=== PATIENT | female | born 1990 | race Caucasian/White ===

== ENCOUNTER 2023-09-23 06:43 | Emergency (ER) | payer BC, SELFPAY ==
[2023-09-23 06:50] VITALS: BP 140/83; PULSE 81; RESP 18; TEMP 36.8; O2SAT 99; BMI 32.9
--- NOTE | 2023-09-23 07:00 | ED.ABDPAIN ---
HPI - Abdominal Pain General Time Seen by Provider: 07:00 Date Seen: 09/23/23 Chief Complaint: Abdominal Pain Stated Complaint: Abdominal pain Time Seen by Provider: 09/23/23 06:46 Source: patient, RN notes reviewed and old records reviewed Mode of arrival: ambulatory Limitations: no limitations History of Present Illness HPI narrative: 33-year-old female who comes in today with right upper quadrant pain and nausea. She had this 3 days ago and was quite severe, felt a little better over 2 days with a bland diet then went to more of a regular diet yesterday and woke up with pain today. Pain is worse with breathing worse with movement. Nausea without vomiting. Has some looser stools but to take MiraLax. No fevers or chills. Related Data Home Medications Medication Instructions Recorded Confirmed No Known Home Medications 09/23/23 09/23/23 Allergies Allergy/AdvReac Type Severity Reaction Status Date / Time No Known Drug Allergies Allergy Verified 09/23/23 06:53 PFSH PFSH Social History Smoking Status: Never smoker Do you use any of these nicotine containing products: None Second hand tobacco smoke exposure: No How often do you have a drink containing alcohol: 2-4 times a month How many standard drinks containing alcohol do you have on a typical day: 1 or 2 How often do you have six or more drinks on one occasion: Less than monthly AUDIT-C Alcohol total score: 3 Non-prescribed substance use: denies use service: Yes Exam Narrative: Exam Narrative: General: Well-developed and well-nourished, no acute distress Head: Atraumatic and normocephalic Eyes: Pupils are equal reactive, extraocular motions intact, conjunctiva clear ENT: External nose and ears are normal, posterior pharynx without erythema or exudate Neck: No midline cervical tenderness, full spontaneous range of motion the neck, trachea midline, no adenopathy Heart: Regular rate and rhythm no murmurs or thrills Lungs: Clear to auscultation bilaterally without wheezes or crackles Abdomen: Soft, right upper quadrant tenderness,, nondistended with active bowel sounds Musculoskeletal: No tenderness, deformity, or edema Neurologic: Awake, alert, and oriented x3, no gross focal neurologic deficits, cranial nerves intact as tested Psych: Mood and affect are appropriate Skin: No rashes Const: Vital Signs, click to edit/add: Vital Signs - 24 hr 09/23/23 06:50 09/23/23 07:32 Temperature 98.2 F Pulse Rate [Pulse Oximeter] 81 66 Respiratory Rate 18 18 Blood Pressure [Ri ght Upper Arm] 140/83 H 105/69 Pulse Oximetry 99 100 Oxygen Delivery Me thod Room Air Room Air Course Course ED Course: Patient seen examined, prior records reviewed. Patient presents with right upper quadrant pain, nausea, and some looser stools. No lower abdominal tenderness to suggest ovarian cyst, torsion, acute appendicitis, or diverticulitis. She does have mild epigastric and moderate right upper quadrant tenderness, suspect biliary colic or acute cholecystitis. Labs are ordered. Patient declines pain medications. Ultrasound ordered as well. Reevaluation(s) Time of Reevaluation #1: 07:52 Reevaluation #1: Labs ordered and independently interpreted by me with reassuring CBC, normal BMP, normal hepatic panel, normal lipase, UA in pending. Time of Reevaluation #2: 08:30 Reevaluation #2: Right upper quadrant ultrasound is negative. Patient rechecked and is currently pain-free. Discussed the findings, this could still represent biliary colic or a calculous cholecystitis although that would be unusual in a healthy young person. Consider HIDA scan if further concern. Discussed bland diet and follow up with General surgery for further evaluation and treatment. Vital Signs Vital signs: Initial Vital Signs Temperature 98.2 F 09/23/23 06:50 Temperature Source Temporal Artery Scan 09/23/23 06:50 Pulse Rate 81 09/23/23 06:50 Respiratory Rate 18 09/23/23 06:50 Blood Pressure 140/83 H 09/23/23 06:50 Blood Pressure Mean 102 09/23/23 06:50 Blood Pressure Position Sitting 09/23/23 06:50 Pulse Oximetry 99 09/23/23 06:50 Oxygen Delivery Method Room Air 09/23/23 06:50 Vital Signs Temperature 98.2 F 09/23/23 06:50 Pulse Rate 81 09/23/23 06:50 Respiratory Rate 18 09/23/23 06:50 Blood Pressure 140/83 H 09/23/23 06:50 Pulse Oximetry 99 09/23/23 06:50 Oxygen Delivery Method Room Air 09/23/23 06:50 Temperature 98.2 F 09/23/23 06:50 Pulse Rate 66 09/23/23 07:32 Respiratory Rate 18 09/23/23 07:32 Blood Pressure 105/69 09/23/23 07:32 Pulse Oximetry 100 09/23/23 07:32 Oxygen Delivery Method Room Air 09/23/23 07:32 MDM - Abdominal Pain Lab Data Labs: Lab Results 09/23/23 09/23/23 Range/Units 07:16 Unknown WBC 5.39 (4.50-11.00) K/uL RBC 4.43 (4.00-5.20) m/uL Hgb 13.1 (12.0-16.0) gm/dL Hct 39.5 (33.0-51.0) % MCV 89 (80-100) fL MCH 30 (26-34) pg MCHC 33 (32-36) gm/dL RDW Coeff of Cookie 11.7 (11.5-15.5) % Plt Count 331 (140-440) K/uL Neut % (Auto) 46.9 (42.0-72.0) % Lymph % (Auto) 45.8 H (20-44) % Carter % (Auto) 5.6 (0.0-11.0) % Eos % (Auto) 1.1 (0.0-7.0) % Baso % (Auto) 0.4 (0.0-3.0) % Neut # (Auto) 2.53 (1.7-7.0) K/uL Lymph # (Auto) 2.50 (0.90-2.90) K/uL Carter # (Auto) 0.30 (0.00-0.90) K/UL Eos # (Auto) 0.06 (0.00-0.50) K/uL Baso # (Auto) 0.02 (0.00-0.30) K/uL Abs Immat Gran (auto) 0.01 (0.00-0.30) K/uL Imm/Tot Granulo (auto) 0.2 % Sodium 141 (135-149) mmol/L Potassium 4.0 (3.6-5.1) mmol/L Chloride 106 (96-114) mmol/L Carbon Dioxide 25 (20-32) mmol/L Anion Gap 10 (7-15) mEq/L BUN 16 (5-24) mg/dL Creatinine 0.7 (0.5-1.5) mg/dL Estimated Creat Clear 92.10 Estimated GFR 119 ml/min Glucose 99 (60-115) mg/dL Calcium 8.9 (8.4-10.6) mg/dL Total Bilirubin 0.5 (0.1-1.5) mg/dL Direct Bilirubin 0.0 (0.0-0.5) mg/dL AST 20 (12-35) U/L ALT 18 (4-35) U/L Alkaline Phosphatase 49 (40-150) U/L Total Protein 7.5 (6.0-8.3) g/dL Albumin 4.5 (3.3-5.0) g/dL Lipase 100 (23-300) U/L Urine Color Yellow (Yellow) Urine Appearance Clear (Clear) Urine pH 6.0 (5.0-8.5) Ur Specific [place] >= 1.030 (1.000-1.030) Urine Protein Negative (Negative) Urine Glucose (UA) Negative (Negative) Urine Ketones Negative (Negative) Urine Blood Negative (Negative) Urine Nitrite Negative (Negative) Urine Bilirubin Negative (Negative) Urine Urobilinogen 0.2 (0.2-1.0) Ur Leukocyte Esterase Negative (Negative) Urine RBC 0-2 (0-2) Urine WBC 0-2 (0-5) Ur Squamous Epith Cells Few (None-Few) Urine Bacteria None (None) Urine Mucus Few A (None) Discharge Plan Discharge Clinical Impression: Abdominal pain, RUQ Patient Disposition: Home, Self-Care Condition: Stable Instructions: Biliary Colic (ED), Abdominal Pain (ED) Additional Instructions: Tylenol and ibuprofen as needed for pain Follow-up with general surgery, call [phone] for an appointment Activity Level: Activity as Tolerated Discharge Diet: Low Fat/Low Cholesterol Prescriptions: No Action No Known Home Medications Follow Up/Referrals: Provider,Not a Local [Primary Care Provider] - Stand Alone Forms: [place] Info Instructions
--- NOTE | 2023-09-23 07:02 | CRLHL7_ITS ---
For Patients: As a result of the Century Cures Act, medical imaging exams and procedure reports are released immediately into your electronic medical record. You may view this report before your referring provider. If you have questions, please contact your health care provider. INDICATION: Right upper quadrant pain. TECHNIQUE: Ultrasound abdomen limited. Sonographic images of the right upper quadrant were obtained using brenner-scale and color Doppler images. COMPARISON: None. FINDINGS: Liver: Normal in size and echotexture. No suspicious masses. No intrahepatic biliary dilatation. Gallbladder: No stones or sludge. Normal wall thickness. No pericholecystic fluid. Common bile duct: 3 mm. Pancreas: Unremarkable where visualized. Right kidney: Normal in size. Normal echotexture and cortex. No suspicious masses, stones, or hydronephrosis. Vasculature: Proximal abdominal aorta and IVC are unremarkable. IMPRESSION: No sonographic findings to explain the clinical history. Dictated by Tay Davis MD @ 09/23/2023 8:23:14 AM (Electronically Signed)
[2023-09-23 07:28] LABS: Basophils Absolute Auto 0.02 K/uL (0.00-0.30); Basophils Percent Auto 0.4 % (0.0-3.0); Eosinophils Absolute Auto 0.06 K/uL (0.00-0.50); Eosinophils Percent Auto 1.1 % (0.0-7.0); Hematocrit 39.5 % (33.0-51.0); Hemoglobin* 13.1 gm/dL (12.0-16.0); Immature Granulocytes Abs Auto 0.01 K/uL (0.00-0.30); Immature Granulocytes Pct Auto 0.2 %; Lymphocytes Percent Auto 45.8 % (20-44); Mean Corpuscular HGB Conc 33 gm/dL (32-36); Mean Corpuscular Hemoglobin 30 pg (26-34); Mean Corpuscular Volume 89 fL (80-100); Monocytes Percent Auto 5.6 % (0.0-11.0); Neutrophils Absolute Auto 2.53 K/uL (1.7-7.0); Neutrophils Percent Auto 46.9 % (42.0-72.0); Platelet Count* 331 K/uL (140-440); RDW Coefficient of Variation % 11.7 % (11.5-15.5); Red Blood Count 4.43 m/uL (4.00-5.20); White Blood Count* 5.39 K/uL (4.50-11.00)
[2023-09-23 07:31] LABS: Slide Review Reflex No
[2023-09-23 07:32] VITALS: BP 105/69; PULSE 66; RESP 18; O2SAT 100
[2023-09-23 07:45] LABS: Albumin* 4.5 g/dL (3.3-5.0); Chloride* 106 mmol/L (96-114); Sodium* 141 mmol/L (135-149)
[2023-09-23 07:45] LABS: Appearance Urine Clear (Clear); Bilirubin Urine Negative (Negative); Blood Urine Negative (Negative); Color Urine Yellow (Yellow); Glucose Urine Negative (Negative); Ketones Urine Negative (Negative); Leukocyte Esterase Urine Negative (Negative); Nitrite Urine Negative (Negative); Protein Urine Negative (Negative); Specific Gravity Urine >= 1.030 (1.000-1.030); Urobilinogen Urine 0.2 (0.2-1.0)
[2023-09-23 07:47] LABS: Creatinine* 0.7 mg/dL (0.5-1.5)
[2023-09-23 07:48] LABS: Alkaline Phosphatase* 49 U/L (40-150); Anion Gap 10 mEq/L (7-15); Aspartate Amino Transferase* 20 U/L (12-35); Bilirubin Total* 0.5 mg/dL (0.1-1.5); Blood Urea Nitrogen* 16 mg/dL (5-24); Carbon Dioxide* 25 mmol/L (20-32); Estimated Glomerular Filt Rate 119 ml/min; Glucose* 99 mg/dL (60-115); Lipase* 100 U/L (23-300); Total Protein* 7.5 g/dL (6.0-8.3)
[2023-09-23 07:49] LABS: Alanine Aminotransferase* 18 U/L (4-35); Calcium* 8.9 mg/dL (8.4-10.6)
[2023-09-23 07:58] LABS: Mucus Urine Few; RBC Urine 0-2 (0-2); Squamous Epithelial Cell Urine Few (None-Few); WBC Urine 0-2 (0-5)
== END 2023-09-23 08:54 | disposition home or self-care (01) ==
PROVIDERS: Emergency Provider Family Medicine
DX: R10.11 Right upper quadrant pain (principal)
CPT/HCPCS: 36415; 76705; 80048; 80076; 81001; 83690; 85025; 99283; 99284